=== PATIENT | female | born 1975 | race Caucasian/White ===

== ENCOUNTER → 2019-11-03 | Outpatient (CLI) | payer OTHER | LOC: M.RAD 15:40 | PROVIDERS: ATTEND Family Medicine | DX: R92.2 Inconclusive mammogram (principal); N64.89 Other specified disorders of breast; N63.0 Unspecified lump in unspecified breast ==

== ENCOUNTER → 2019-11-05 | Outpatient (CLI) | payer OTHER | LOC: M.ULTRA 15:24 | PROVIDERS: ATTEND Family Medicine | DX: N60.02 Solitary cyst of left breast (principal); N60.01 Solitary cyst of right breast ==